=== PATIENT | male | born 1980 | race Caucasian/White ===

== ENCOUNTER 2021-06-16 19:57 | Emergency (ER) | payer OTHER ==
[~2021-06-16] VITALS: Ht 185.4 cm; Wt 158.8 kg
[~2021-06-16 19:57] MED LIST: HYDR-699 PO
[2021-06-16 20:14] VITALS: BP 162/97
--- NOTE | 2021-06-16 20:17 | NUR ---
[facility] in [facility] - 06/16/21 at 2102 by [email or web address] PT TAKEN TO DENNIS Donald
--- NOTE | 2021-06-16 20:19 | NUR ---
PT TAKEN TO DENNIS Donald
--- NOTE | 2021-06-16 20:21 | NUR ---
DR. MANUEL WITH PT IN A FOR FURTHER EVALUATION.
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
--- NOTE | 2021-06-16 20:24 | NUR ---
PT TAKEN TO XR VIA W/C.
[2021-06-16] MEDS ORDERED: KETOROLAC 30 MG/ML VIAL IM ONE (20:25)
--- NOTE | 2021-06-16 20:27 | NUR ---
PT TAKEN TO C VIA W/C.
--- NOTE | 2021-06-16 21:24 | NUR ---
PT W/C ASSISTED TO ER BED 6.
[2021-06-16] MEDS ORDERED: BACITRACIN OINT 500 UNITS/GM PKT TP ONE (21:33)
[2021-06-16] MEDS ORDERED: NAPR-54 PO (21:42)
[2021-06-16] MEDS ORDERED: ACET-10509 PO (21:42)
[2021-06-16 22:10] VITALS: BP 162/97
== END 2021-06-16 22:05 | disposition home or self-care (01) ==
LOC: MED 19:57
DX: S93.491A Sprain of other ligament of right ankle, initial encounter (principal); S83.8X2A Sprain of other specified parts of left knee, initial encounter; S30.810A Abrasion of lower back and pelvis, initial encounter; S40.812A Abrasion of left upper arm, initial encounter; S40.811A Abrasion of right upper arm, initial encounter; V49.9XXA Car occupant (driver) (passenger) injured in unspecified traffic accident, initial encounter; Y93.89 Activity, other specified; Y92.89 Other specified places as the place of occurrence of the external cause; Y99.8 Other external cause status
CPT/HCPCS: 73562; 73610; 96372; 99284; J1885

== ENCOUNTER 2021-10-03 18:35 | Emergency (ER) | payer OTHER ==
[~2021-10-03] VITALS: Ht 185.4 cm; Wt 166.0 kg
[~2021-10-03 18:35] MED LIST changes: +ACET-10509 PO; +NAPR-54 PO
[2021-10-03 18:42] VITALS: BP 204/112
[2021-10-03] MEDS ORDERED: IBUP-2213 PO (19:57)
[2021-10-03] MEDS ORDERED: METO-747 PO (19:59)
[2021-10-03 20:27] VITALS: BP 185/98
--- NOTE | 2021-10-03 20:28 | NUR ---
PT SEEN AND EVALUATED BY ERMD. NO NURSING INTERVENTIONS NEEDED
--- NOTE | 2021-10-03 20:28 | NUR ---
Patient discharged with v/s stable. Written and verbal after care instructions given and explained. Patient verbalized understanding. Ambulatory with steady gait. All questions addressed prior to discharge. Advised to follow up with PMD.
== END 2021-10-03 20:26 | disposition home or self-care (01) ==
LOC: MED 18:35
DX: K42.9 Umbilical hernia without obstruction or gangrene (principal); I10 Essential (primary) hypertension; Z79.899 Other long term (current) drug therapy
CPT/HCPCS: 99282

== ENCOUNTER 2021-10-15 08:12 | Emergency (ER) | payer OTHER ==
[~2021-10-15] VITALS: Ht 185.4 cm; Wt 156.5 kg
[~2021-10-15 08:12] MED LIST changes: +IBUP-2213 PO; +METO-747 PO
[2021-10-15 08:48] VITALS: BP 148/117
[2021-10-15] MEDS ORDERED: ACET-8386 PO (09:02)
[2021-10-15] MEDS ORDERED: SULF-59 PO (09:02)
[2021-10-15] MEDS ORDERED: NAPR-54 PO (09:02)
--- NOTE | 2021-10-15 09:37 | NUR ---
Patient discharged with v/s stable. Written and verbal after care instructions given and explained. Patient alert, oriented and verbalized understanding of instructions. Ambulatory with steady gait. All questions addressed prior to discharge. ID band removed. Patient advised to follow up with PMD. Rx of HYDROCODONE/ACETAMINOPHEN, NAPROXEN, SULFAMETHOXAZOLE/TRIMETHOPRIM given. Opportunity to ask questions provided and answered.
== END 2021-10-15 09:37 | disposition home or self-care (01) ==
LOC: MED 08:12
DX: U07.1 COVID-19 (principal); L02.416 Cutaneous abscess of left lower limb; I10 Essential (primary) hypertension; Z90.49 Acquired absence of other specified parts of digestive tract; Z79.891 Long term (current) use of opiate analgesic; Z79.1 Long term (current) use of non-steroidal anti-inflammatories (NSAID); Z79.2 Long term (current) use of antibiotics; Z79.899 Other long term (current) drug therapy
CPT/HCPCS: 99283

== ENCOUNTER 2021-12-27 11:16 | Emergency (ER) | payer OTHER ==
[~2021-12-27] VITALS: Ht 182.9 cm; Wt 158.3 kg
[~2021-12-27 11:16] MED LIST changes: +ACET-8386 PO; +SULF-59 PO
[2021-12-27 11:44] VITALS: BP 199/141
[2021-12-27] MEDS ORDERED: SODIUM CHLORIDE FLUSH 10 ML SYR IVF STA (11:50)
[2021-12-27 12:36] LABS: BASOPHILS # (AUTO) 0.3 K/uL (0.00-0.22); BASOPHILS % (AUTO) 2.9 % (0.0-2.0); EOSINOPHILS # (AUTO) 0.1 K/uL (0-0.4); EOSINOPHILS % (AUTO) 1.1 % (0.0-4.0); HEMATOCRIT 45.6 % (36-52); HEMOGLOBIN 14.9 g/dL (12.0-18.0); LYMPHOCYTES # (AUTO) 1.3 K/uL (2.0-11.5); LYMPHOCYTES % (AUTO) 14.3 % (20.5-51.1); MEAN CORPUSCULAR HEMOGLOBIN 28 pg (27-31); MEAN CORPUSCULAR HGB CONC 33 g/dL (33-37); MONOCYTES # (AUTO) 0.7 K/uL (0.8-1.0); MONOCYTES % (AUTO) 7.6 % (1.7-9.3); NEUTROPHILS # (AUTO) 6.9 K/uL (1.8-7.7); NEUTROPHILS % (AUTO) 74.1 % (42.2-75.2); PLATELET COUNT (AUTO) 313 K/uL (140-450); RED BLOOD CELL COUNT(AUTO) 5.31 MIL/uL (4.20-6.10); RED CELL DISTRIBUTION WIDTH 14.7 % (11.6-13.7); WHITE BLOOD COUNT (AUTO) 9.3 K/uL (4.8-10.8)
[2021-12-27 12:42] LABS: ALBUMIN 3.7 g/dL (3.4-5.0); ANION GAP 11.2 (8-16); CARBON DIOXIDE 31.6 mmol/L (21-32); CREATININE 1.2 mg/dL (0.6-1.3); POTASSIUM 4.8 mmol/L (3.5-5.1); TOTAL BILIRUBIN 0.6 mg/dL (0.0-1.0)
--- NOTE | 2021-12-27 13:20 | NUR ---
Patient ambulated to bed 07 accompanied by son.
[2021-12-27 13:56] LABS: APPEARANCE,URINE CLEAR (CLEAR); BILIRUBIN,URINE NEGATIVE (NEGATIVE); BLOOD, URINE NEGATIVE (NEGATIVE); COLOR,URINE YELLOW (YELLOW); LEUKOCYTE ESTERASE ,URINE NEGATIVE (NEGATIVE); NITRITE, URINE NEGATIVE (NEGATIVE); PH,URINE 6.5 (5.0-9.0); UGLUCOSE NEGATIVE (NEGATIVE)
--- NOTE | 2021-12-27 14:05 | NUR ---
Dr. Nair at bedside evaluating patient.
--- NOTE | 2021-12-27 14:10 | NUR ---
40 y/o M BIB self from home c/o generalized abdominal pain and nausea since this am. Patient A&Ox4, ambulatory, states generalized abd pain 8/10, sharp, radiating to genitalia. Abd soft/round/tender to palpation to RLQ/RUQ and umbilical region. Pt states hx of umbilical hernia. Mass felt to belly button region. Denies urinary problems. Denies vomiting/diarrhea. took norco 2 hours ago which did not provide relief. Pt placed into a gown and urnie sample collected. Bed locked in lowest position, side rails x 1. pmh: htn, diverticulitis meds: lisinopril, metoprolol, aspirin nka
[2021-12-27] MEDS ORDERED: KETOROLAC 15 MG/ML VIAL IVP ONE (14:20)
--- NOTE | 2021-12-27 14:59 | NUR ---
Patient taken via gurney for imaging.
[2021-12-27] MEDS ORDERED: AMOXIL/CLAVULANATE 875/125 MG 1 TAB PO ONE (15:40)
[2021-12-27] MEDS ORDERED: ACET-10509 PO (15:40)
[2021-12-27] MEDS ORDERED: AMOX-1230 PO (15:40)
[2021-12-27] MEDS ORDERED: ONDA-188 SL (15:40)
--- NOTE | 2021-12-27 15:54 | NUR ---
Dr Nair at bedside re-evaluating patient.
--- NOTE | 2021-12-27 16:25 | NUR ---
Chart checked and completed. The patient's care was reviewed and supervised by Ramón Rojo, RN, RN.
[2021-12-27 16:27] VITALS: BP 179/123
--- NOTE | 2021-12-27 16:28 | NUR ---
Patient discharged with v/s stable. Written and verbal after care instructions given. Patient alert, oriented and verbalized understanding of instructions. Ambulatory with steady gait. All questions addressed prior to discharge. ID band removed. Patient advised to follow up with PMD. Rx of tylenol extra strength, amox-clav 875-125 mg tab and Zofran ODT. given. Opportunity to ask questions provided and answered.
== END 2021-12-27 16:25 | disposition home or self-care (01) ==
LOC: MED 11:16
DX: K57.92 Diverticulitis of intestine, part unspecified, without perforation or abscess without bleeding (principal); N28.1 Cyst of kidney, acquired; K42.9 Umbilical hernia without obstruction or gangrene; I10 Essential (primary) hypertension; F17.210 Nicotine dependence, cigarettes, uncomplicated; Z71.6 Tobacco abuse counseling; Z90.49 Acquired absence of other specified parts of digestive tract; Z79.899 Other long term (current) drug therapy
CPT/HCPCS: 36415; 74176; 80053; 81003; 83690; 85025; 96374; 99284; J1885